=== PATIENT | female | born 1960 | race Caucasian/White ===

== ENCOUNTER → 2016-06-30 | Outpatient (CLI) | payer OTHER | LOC: COL.PUL 11:32 | DX: R06.02 Shortness of breath (principal); F17.200 Nicotine dependence, unspecified, uncomplicated ==

== ENCOUNTER → 2016-08-15 | Outpatient (CLI) | payer OTHER | LOC: COL.PUL 10:31 | DX: R06.02 Shortness of breath (principal) | CPT/HCPCS: J7674 ==

== ENCOUNTER 2017-06-03 07:50 | Day surgery (SDC) | payer OTHER ==
[2017-06-03] VITALS (13 sets, daily range): BP systolic 101–157; BP diastolic 53–87; PULSE 46–88; TEMP 97.8–97.9
[~2017-06-03] VITALS: Ht 165.2 cm; Wt 88.0 kg
[2017-06-03] MEDS ORDERED: PRESERVISION1 SGL PO (08:30)
[2017-06-03 08:31] LABS: HEMATOCRIT 40.9 % (37.0-47.0); HEMOGLOBIN 13.4 g/dl (12.5-16.0); MEAN CELL VOLUME 89 fl (80.0-100.0); MEAN CORPUSCULAR HEMOGLOBIN 29 pg (27.0-31.0); MEAN CORPUSCULAR HGB CONC 33 g/dl (33.0-37.0); MEAN PLATELET VOLUME 10.4 fl (7.4-10.4); PLATELET COUNT 227 K/mm3 (130-400); RED BLOOD COUNT 4.61 M/mm3 (4.10-5.30)
[2017-06-03] MEDS ORDERED: HCTZ 25MG TAB25 MG PO (08:31)
[2017-06-03] MEDS ORDERED: MICARDIS20 MG PO (08:32)
[2017-06-03] MEDS ORDERED: OPTIVE SENSITI0.4 ML OP (08:33)
[2017-06-03] MEDS ORDERED: MASON NATURAL2000 IU PO (08:34)
[2017-06-03] MEDS ORDERED: SYNTHROID0.112 MG/T PO (08:34)
[2017-06-03] MEDS ORDERED: TYLENOL 325MG325 MG PO (08:35)
[2017-06-03] MEDS ORDERED: CALCIUM CITRATE1 TA1 PO (08:35)
[2017-06-03] MEDS ORDERED: ASPIRIN E.C. 8181 MG PO (08:37)
[2017-06-03 08:38] LABS: PROTHROMBIN TIME 11.9 SECONDS (9.7-12.8)
[2017-06-03 08:44] LABS: CALCIUM 9.3 mg/dL (8.4-10.2); CREATININE, serum 0.8 mg/dL (0.52-1.25)
== END 2017-06-03 16:35 | disposition home or self-care (01) ==
LOC: COL.CAR 07:50
PROVIDERS: Internal Medicine Cardiovascular Disease
DX: R07.89 Other chest pain (principal); R00.1 Bradycardia, unspecified; R00.2 Palpitations; E78.2 Mixed hyperlipidemia; G47.33 Obstructive sleep apnea (adult) (pediatric); I10 Essential (primary) hypertension; E03.9 Hypothyroidism, unspecified; I08.1 Rheumatic disorders of both mitral and tricuspid valves; Z88.0 Allergy status to penicillin; Z88.8 Allergy status to other drugs, medicaments and biological substances; Z82.49 Family history of ischemic heart disease and other diseases of the circulatory system; I83.93 Asymptomatic varicose veins of bilateral lower extremities
CPT/HCPCS: J2250; J3010; Q9967

== ENCOUNTER 2018-01-06 10:23 | Inpatient (IN) | payer OTHER ==
[~2018-01-06] VITALS: Ht 165.1 cm; Wt 85.0 kg
[~2018-01-06 10:23] MED LIST: ASPIRIN E.C. 8181 MG PO; CALCIUM CITRATE1 TA1 PO; HCTZ 25MG TAB25 MG PO; MASON NATURAL2000 IU PO; MICARDIS20 MG PO; OPTIVE SENSITI0.4 ML OP; PRESERVISION1 SGL PO; SYNTHROID0.112 MG/T PO; TYLENOL 325MG325 MG PO
[2018-01-20] VITALS (12 sets, daily range): BP systolic 104–144; BP diastolic 45–78; PULSE 49–97; TEMP 97.8–98.5
[2018-01-20 08:06] LABS: HEMOGLOBIN 13.4 g/dl (12.5-16.0); MEAN CELL VOLUME 87 fl (80.0-100.0); MEAN CORPUSCULAR HEMOGLOBIN 29 pg (27.0-31.0); MEAN CORPUSCULAR HGB CONC 33 g/dl (33.0-37.0); MEAN PLATELET VOLUME 10.2 fl (7.4-10.4); PLATELET COUNT 225 K/mm3 (130-400); REDCELL DISTRIBUTION WIDTH-CV 13.3 % (11.5-14.5)
[2018-01-20] MEDS ORDERED: ELIQUIS 5MG PO (08:08)
[2018-01-20] MEDS ORDERED: FLOVENT DI250 MCG/Ac IH (08:09)
[2018-01-20 08:17] LABS: CALCIUM 9.4 mg/dL (8.4-10.2); CREATININE, serum 0.8 mg/dL (0.52-1.25)
[2018-01-20 08:24] LABS: PROTHROMBIN TIME 11.4 SECONDS (9.7-12.8)
[2018-01-21 01:17] VITALS: BP 130/65; PULSE 60; TEMP 98.4
[2018-01-21 05:12] VITALS: BP 122/73; PULSE 62; TEMP 97.6
[2018-01-21 06:46] LABS: BASO % 0.6 % (0.0-2.0); EOS # 0.1 (0.0-0.7); EOS % 1.8 % (0-4.0); GRAN # 4.2 (1.4-6.5); GRAN % 64.1 % (42.2-75.2); HEMATOCRIT 40.7 % (37.0-47.0); HEMOGLOBIN 13.2 g/dl (12.5-16.0); LYMPH # 1.8 (1.2-3.4); LYMPH % 27.6 % (20.0-51.0); MEAN CELL VOLUME 88 fl (80.0-100.0); MEAN CORPUSCULAR HEMOGLOBIN 28 pg (27.0-31.0); MEAN CORPUSCULAR HGB CONC 32 g/dl (33.0-37.0); MEAN PLATELET VOLUME 10.5 fl (7.4-10.4); MONO # 0.4 (0.1-0.6); MONO % 5.6 % (1.7-9.3); PLATELET COUNT 234 K/mm3 (130-400); RED BLOOD COUNT 4.65 M/mm3 (4.10-5.30); REDCELL DISTRIBUTION WIDTH-CV 13.4 % (11.5-14.5)
[2018-01-21 06:49] LABS: INR 1.2 (0.8-3.0); PROTHROMBIN TIME 13.4 SECONDS (9.7-12.8)
[2018-01-21 07:12] LABS: CALCIUM 9.4 mg/dL (8.4-10.2); CREATININE, serum 0.7 mg/dL (0.52-1.25); MAGNESIUM 1.8 mg/dL (1.6-2.3)
[2018-01-21 07:41] VITALS: BP 120/69; PULSE 59; TEMP 98.1
[2018-01-21 13:06] VITALS: BP 102/57; PULSE 59; TEMP 98
[2018-01-21 15:42] VITALS: BP 127/84; PULSE 76; TEMP 98.1
[2018-01-21 19:53] VITALS: BP 113/67; PULSE 59; TEMP 98.4
[2018-01-22 00:21] VITALS: BP 119/73; PULSE 60; TEMP 98.1
[2018-01-22 04:20] VITALS: BP 95/50; PULSE 78; TEMP 98.2
[2018-01-22 07:08] LABS: BASO % 0.3 % (0.0-2.0); EOS # 0.1 (0.0-0.7); EOS % 1.4 % (0-4.0); GRAN # 5.8 (1.4-6.5); GRAN % 65.5 % (42.2-75.2); HEMATOCRIT 43.8 % (37.0-47.0); HEMOGLOBIN 14.7 g/dl (12.5-16.0); LYMPH # 2.3 (1.2-3.4); LYMPH % 25.4 % (20.0-51.0); MEAN CELL VOLUME 85 fl (80.0-100.0); MEAN CORPUSCULAR HEMOGLOBIN 28 pg (27.0-31.0); MEAN CORPUSCULAR HGB CONC 34 g/dl (33.0-37.0); MEAN PLATELET VOLUME 10.5 fl (7.4-10.4); MONO # 0.6 (0.1-0.6); MONO % 7.1 % (1.7-9.3); PLATELET COUNT 263 K/mm3 (130-400); RED BLOOD COUNT 5.18 M/mm3 (4.10-5.30); REDCELL DISTRIBUTION WIDTH-CV 13.2 % (11.5-14.5)
[2018-01-22 07:15] LABS: INR 1.2 (0.8-3.0); PROTHROMBIN TIME 13.6 SECONDS (9.7-12.8)
[2018-01-22 07:19] LABS: CALCIUM 9.7 mg/dL (8.4-10.2); CREATININE, serum 0.75 mg/dL (0.52-1.25); POTASSIUM 3.6 mmol/L (3.4-5.0)
[2018-01-22 08:08] VITALS: BP 134/90; PULSE 62; TEMP 98.3
[2018-01-22 08:10] VITALS: BP 119/79; PULSE 61; TEMP 98.2
[2018-01-22] MEDS ORDERED: BETAPACE 80MG80 MG PO (09:16)
[2018-01-22] MEDS ORDERED: CLEOCIN HCL300 MG PO (09:17)
== END 2018-01-22 10:23 | disposition home or self-care (01) | DRG 244 ==
LOC: COL.CAR 01-20 07:23 → EDSTATUS 01-20 07:30 → COL.CAR 01-20 07:30 → MEDICAL 01-20 11:57 → COL.CAR 01-21 15:08 → MEDICAL 01-21 15:08
PROVIDERS: Internal Medicine Cardiovascular Disease; Nurse Practitioner
PROC: 0JH606Z Insertion of Pacemaker, Dual Chamber into Chest Subcutaneous Tissue and Fascia, Open Approach (ICD-10-PCS; principal; 2018-01-20)
PROC: 02H63JZ Insertion of Pacemaker Lead into Right Atrium, Percutaneous Approach (ICD-10-PCS; 2018-01-20)
PROC: 02HK3JZ Insertion of Pacemaker Lead into Right Ventricle, Percutaneous Approach (ICD-10-PCS; 2018-01-20)
PROC: 0JPT02Z Removal of Monitoring Device from Trunk Subcutaneous Tissue and Fascia, Open Approach (ICD-10-PCS; 2018-01-20)
DX: I48.0 Paroxysmal atrial fibrillation (principal); I49.5 Sick sinus syndrome; I10 Essential (primary) hypertension
CPT/HCPCS: OP; C1769; C1785; C1894; C1898; J2250; J3010; J3370; J7030; J7050

== ENCOUNTER 2018-01-25 01:34 | Observation (INO) | payer OTHER ==
[~2018-01-25] VITALS: Ht 165.1 cm; Wt 87.5 kg
[~2018-01-25 01:34] MED LIST changes: +BETAPACE 80MG80 MG PO; +CLEOCIN HCL300 MG PO; +ELIQUIS 5MG PO; +FLOVENT DI250 MCG/Ac IH
[2018-01-25] MEDS ORDERED: PROAIR HFA0.09 MG/AC IH (02:51)
[2018-01-25 02:54] VITALS: BP 153/79; PULSE 61; TEMP 97.9
[2018-01-25 04:14] LABS: BASO % 0.4 % (0.0-2.0); EOS # 0.1 (0.0-0.7); EOS % 1.5 % (0-4.0); GRAN # 4.2 (1.4-6.5); GRAN % 56.8 % (42.2-75.2); HEMATOCRIT 41.2 % (37.0-47.0); HEMOGLOBIN 13.8 g/dl (12.5-16.0); LYMPH # 2.4 (1.2-3.4); LYMPH % 33.1 % (20.0-51.0); MEAN CELL VOLUME 86 fl (80.0-100.0); MEAN CORPUSCULAR HEMOGLOBIN 29 pg (27.0-31.0); MEAN CORPUSCULAR HGB CONC 34 g/dl (33.0-37.0); MEAN PLATELET VOLUME 9.7 fl (7.4-10.4); MONO # 0.6 (0.1-0.6); MONO % 7.9 % (1.7-9.3); PLATELET COUNT 221 K/mm3 (130-400); REDCELL DISTRIBUTION WIDTH-CV 13.1 % (11.5-14.5)
[2018-01-25 04:23] LABS: ANION GAP 3 mmol/L (7-16); BLOOD UREA NITROGEN 26 mg/dL (7-17); CALCIUM 9.7 mg/dL (8.4-10.2); CARBON DIOXIDE 40 mmol/L (22-30); CHLORIDE 97 mmol/L (98-107); CREATININE, serum 0.75 mg/dL (0.52-1.25); GLUCOSE 105 mg/dL (74-106); POTASSIUM 3.5 mmol/L (3.4-5.0); SODIUM 139 mmol/L (137-145)
[2018-01-25 04:36] LABS: TROPONIN-I < 0.012 ng/mL (0.000-0.034)
[2018-01-25 04:44] VITALS: BP 141/74; PULSE 60; TEMP 97.9
[2018-01-25 07:37] VITALS: BP 125/61; PULSE 61; TEMP 98.6
[2018-01-25 11:16] VITALS: BP 124/75; PULSE 58; TEMP 99
== END 2018-01-25 17:06 | disposition home or self-care (01) ==
LOC: MEDICAL 01:34
PROVIDERS: Nurse Practitioner
DX: R07.89 Other chest pain (principal); I48.91 Unspecified atrial fibrillation; E03.9 Hypothyroidism, unspecified; I10 Essential (primary) hypertension; Z95.0 Presence of cardiac pacemaker; Z79.82 Long term (current) use of aspirin; Z79.01 Long term (current) use of anticoagulants; Z90.710 Acquired absence of both cervix and uterus; Z90.722 Acquired absence of ovaries, bilateral; Z88.8 Allergy status to other drugs, medicaments and biological substances; Z88.0 Allergy status to penicillin
CPT/HCPCS: J2270

== ENCOUNTER → 2021-01-02 | Outpatient (CLI) | payer OTHER ==
[~2021-01-02] MED LIST changes: +CRESTOR5 MG PO; +NITRO-DUR0.4 MG/PAT TD; +PROAIR HFA0.09 MG/AC IH; +REFRESH 1 ML1 ML OP; +SYNTHROID0.125 MG/T PO; +TOPROL XL 25MG25 MG PO
== END ==
LOC: COL.RAD 11:52
DX: M17.12 Unilateral primary osteoarthritis, left knee (principal); M94.262 Chondromalacia, left knee; M71.22 Synovial cyst of popliteal space [Baker], left knee; S83.282A Other tear of lateral meniscus, current injury, left knee, initial encounter

== ENCOUNTER 2021-01-17 09:23 | Day surgery (SDC) | payer OTHER ==
[2021-01-17] VITALS (10 sets, daily range): BP systolic 110–147; BP diastolic 65–90; PULSE 60–65; TEMP 97.8
[~2021-01-17] VITALS: Ht 165.2 cm; Wt 88.0 kg
[~2021-01-17 09:23] MED LIST changes: -CRESTOR5 MG PO; -NITRO-DUR0.4 MG/PAT TD; -REFRESH 1 ML1 ML OP; -SYNTHROID0.112 MG/T PO; -TOPROL XL 25MG25 MG PO
[2021-01-17 10:30] LABS: HEMATOCRIT 41.8 % (37.0-47.0); HEMOGLOBIN 13.3 g/dl (12.5-16.0); MEAN CELL VOLUME 87 fl (80.0-100.0); MEAN CORPUSCULAR HEMOGLOBIN 28 pg (27.0-31.0); MEAN CORPUSCULAR HGB CONC 32 g/dl (33.0-37.0); MEAN PLATELET VOLUME 10.4 fl (7.4-10.4); PLATELET COUNT 237 K/mm3 (130-400); RED BLOOD COUNT 4.82 M/mm3 (4.10-5.30); REDCELL DISTRIBUTION WIDTH-CV 13.7 % (11.5-14.5)
[2021-01-17] MEDS ORDERED: SYNTHROID0.112 MG/T PO (10:35)
[2021-01-17 10:37] LABS: INR 1.1 (0.8-3.0); PROTHROMBIN TIME 11.9 SECONDS (9.7-12.8)
[2021-01-17] MEDS ORDERED: NITRO-DUR0.4 MG/PAT TD (10:37)
[2021-01-17] MEDS ORDERED: MICARDIS20 MG PO (10:37)
[2021-01-17] MEDS ORDERED: REFRESH 1 ML1 ML OP (10:38)
[2021-01-17] MEDS ORDERED: CRESTOR5 MG PO (10:39)
[2021-01-17] MEDS ORDERED: TOPROL XL 25MG25 MG PO (10:39)
[2021-01-17 10:40] LABS: PARTIAL THROMBOPLASTIN TIME 35.3 SECONDS (26.0-37.0)
[2021-01-17 10:47] LABS: CALCIUM 9.7 mg/dL (8.4-10.2); CREATININE, serum 0.82 mg/dL (0.57-1.11); POTASSIUM 4.1 mmol/L (3.5-4.5)
--- NOTE | 2021-01-17 11:04 | NUR ---
SEE MERGE DOCUMENTATION FOR MEDICATION ADMINISTRATION AND INTRA/POST PROCEDURE SEDATION ASSESSMENTS.
--- NOTE | 2021-01-17 14:25 | NUR ---
DC instructions reviewed with pt, and son. All express understanding and deny questions. Air has been removed from TR band in 2 ml increments with no bleeding or complication. Rt radial puncture site dressed with folded 2x2 and bandaid. INT DC'd with catheter intact. Pt steady on feet around room. She is assisted out to son's car by wheelchair with belongings.
== END 2021-01-17 14:25 | disposition home or self-care (01) ==
LOC: COL.CAR 09:23
PROVIDERS: Internal Medicine Cardiovascular Disease
DX: R07.89 Other chest pain (principal); R06.00 Dyspnea, unspecified; R94.39 Abnormal result of other cardiovascular function study; I48.0 Paroxysmal atrial fibrillation; I08.1 Rheumatic disorders of both mitral and tricuspid valves; I10 Essential (primary) hypertension; G47.33 Obstructive sleep apnea (adult) (pediatric); E78.5 Hyperlipidemia, unspecified; Z99.89 Dependence on other enabling machines and devices; Z79.890 Hormone replacement therapy; Z79.899 Other long term (current) drug therapy; Z79.01 Long term (current) use of anticoagulants; Z79.82 Long term (current) use of aspirin; Z95.0 Presence of cardiac pacemaker
CPT/HCPCS: C1769; J1644; J2250; J3010